=== PATIENT | female | born 1960 | race Caucasian/White ===

== ENCOUNTER 2019-04-18 07:53 | Day surgery (SDC) | payer OTHER ==
[2019-04-18] MEDS ORDERED: LIDOCAINE 100 MG SYRINGE (09:19)
[2019-04-18] MEDS ORDERED: PROPOFOL 40 ML (09:19)
== END 2019-04-18 13:59 | disposition home or self-care (01) ==
LOC: GIL 07:53
DX: Z12.11 Encounter for screening for malignant neoplasm of colon (principal); D17.5 Benign lipomatous neoplasm of intra-abdominal organs; K63.89 Other specified diseases of intestine; I10 Essential (primary) hypertension; E11.9 Type 2 diabetes mellitus without complications
CPT/HCPCS: 45380; 82962; 88305